=== PATIENT | female | born 1950 | race African-American/Black ===

== ENCOUNTER 2021-01-19 10:49 | Emergency (ER) | payer BC, MEDICAID ==
[~2021-01-19] VITALS: Ht 170.2 cm; Wt 86.2 kg
[~2021-01-19 10:49] MED LIST: AMLO-496; ARIP2TAB; ASPI81CH43; CYCL-837; HYDR-2601; METO-158; PAROXETINE; RANI150C11; SIMV-13; TRIA50CA40; ZOLP10TA
[2021-01-19] MEDS ORDERED: SODIUM CHLORIDE 0.9% 1,000 ML IV ONE (11:30)
[2021-01-19 11:53] LABS: Basophils # (auto) 0.1 10 ^3/uL (0-0.2); Basophils % (auto) 0.8 % (0.0-2.0); Eosinophils # (auto) 0.1 10 ^3/uL (0-0.8); Eosinophils % (auto) 1.5 % (0.0-7.0); Hematocrit 43.2 % (36.0-46.0); Hemoglobin 14.5 g/dL (12.2-16.2); Lymphocytes # (auto) 2.4 10 ^3/uL (0.4-5.4); Lymphocytes % (auto) 29.1 % (10.0-50.0); Mean Corpuscular Hemoglobin 28.6 pg (28.0-32.0); Mean Corpuscular Hgb Conc. 33.7 g/dL (32.0-36.0); Monocytes # (auto) 0.4 10 ^3/uL (0-1.3); Monocytes % (auto) 5.5 % (0.0-12.0); Neutrophils # (auto) 5.2 10 ^3/uL (1.6-8.6); Neutrophils % (auto) 63.1 % (37.0-80.0); Nucleated Red Blood Cells % 0.1 %; Red Blood Cells 5.08 10^6/uL (4.0-5.20); Red Cell Distribution Width 14.6 % (11.8-14.3); White Blood Cell 8.2 10^3/uL (4.4-10.8)
[2021-01-19 12:14] LABS: Albumin 3.7 g/dL (3.4-5.0); Anion Gap 7 (5-15); Calcium 9.3 mg/dL (8.5-10.1); Carbon Dioxide 25 mmol/L (21-32); Chloride 108 mmol/L (98-107); Glucose 101 mg/dL (74-106); Potassium 3.6 mmol/L (3.5-5.1); Sodium 140 mmol/L (136-145)
[2021-01-19 12:20] LABS: Alanine Aminotransferase 28 U/L (13-56); Alkaline Phosphatase 94 U/L (45-117); Aspartate Aminotransferase 20 U/L (15-37); Bilirubin, Total 0.4 mg/dL (0.2-1.0); GFR African American 78 mL/min; GFR Non-African American 64 mL/min
[2021-01-19 12:23] LABS: BUN/Creatinine Ratio 15.2; Blood Urea Nitrogen 14 mg/dL (7-18)
[2021-01-19 13:51] VITALS: BP 148/73
[2021-01-19 14:52] LABS: Urine Bacteria NONE SEEN /hpf (None Seen); Urine Blood Negative /uL (Negative); Urine Specific Gravity 1.006 (1.001-1.035); Urine WBC 3 /hpf (0 - 5)
== END 2021-01-19 14:57 | disposition home or self-care (01) ==
LOC: ER 10:51
DX: G51.39 Clonic hemifacial spasm, unspecified (principal); F41.9 Anxiety disorder, unspecified; R25.3 Fasciculation; E78.5 Hyperlipidemia, unspecified; I10 Essential (primary) hypertension; Z90.710 Acquired absence of both cervix and uterus
CPT/HCPCS: 36415; 70450; 71045; 80053; 81001; 84484; 85025; 96360; 96361; 99285; J7030